=== PATIENT | male | born 1960 | race Caucasian/White ===

== ENCOUNTER 2016-06-29 16:04 | Emergency (ER) | payer BC ==
[2016-06-29 16:49] VITALS: BP 133/80
[2016-06-29] MEDS ORDERED: Ketorolac INJ* 60 MG/2 ML VIAL IM ONE (17:38)
--- NOTE | 2016-06-29 17:50 | RAD ---
Indication: Severe sudden onset RIGHT low back pain without preceding injury. Comparison: April 25, 2006 CT. Technique: AP, lateral, and oblique views lumbar sacral spine. Report: Mild LEFT convex curve of the lumbar spine centered at the L3-L4 level is new compared with the 2007 CT. Normal lordotic curve without spondylolisthesis. Negative for fracture or spondylolysis. No focal osseous lesions evident. Multilevel mild vertebral endplate osteophytosis. Moderate L2-L3 and mild L3-L4 disc space narrowing. Unremarkable paraspinal soft tissue contours. IMPRESSION: Degenerative spondylosis with worsening compared with the [address] CT[address]
--- NOTE | 2016-06-29 18:06 | UC ---
Oskar Pat Billy, scribed for Jessica Almendarez MD on 06/29/16 at 1653 . Back Pain HPI - HPI Summary HPI Summary: Patient is a 55 year-old male coming to [facility] with his with lower back pain today. Patient states that he has had several days of relatively mild pain , but his pain increased significantly this morning when he was bending down to put on his socks and shoes. He states that the pain is worst in the right lumbar region, and does not radiate to the legs. Pain is worse with weightbearing, and improved when arching his back backwards. He also took ibuprofen this morning, with improvement to pain. He denies any numbness, tingling, or loss of bladder or bowel control. Patient states he had one episode of sciatic pain several years ago. - History of Current Complaint Chief Complaint: UCBackPain Stated Complaint: BACK INJURY Time Seen by Provider: 06/29/16 16:47 Hx Obtained From: Patient Onset/Duration: Sudden Onset, Lasting Hours, Still Present Timing: Constant Severity Initially: Moderate Severity Currently: Moderate Pain Intensity: 6 Pain Scale Used: 0-10 Numeric Character: Aching Aggravating: Walking - weightbearing Alleviating: OTC Meds - ibuprofen Associated Signs And Symptoms: Negative: Numbness, Tingling, Bladder Incontinence, Bowel Incontinence - Allergies/Home Medications Allergies/Adverse Reactions: Allergies Allergy/AdvReac Type Severity Reaction Status Date / Time No Known Allergies Allergy Verified 06/29/16 16:49 Home Medications: Home Medications Ibuprofen [Advil Migraine] 600 PRN 06/29/16 [History] PMH/Surg Hx/FS Hx/Imm Hx Previously Healthy: Yes - Surgical History Surgical History: Yes Surgery Procedure, Year, and Place: tonsils - Family History Known Family History: Positive: Cardiac Disease, Hypertension - Social History Alcohol Use: Occasionally Substance Use Type: None Smoking Status (MU): Never Smoked Tobacco Review of Systems Constitutional: Negative Skin: Negative Eyes: Negative ENT: Negative Respiratory: Negative Cardiovascular: Negative Gastrointestinal: Negative Genitourinary: Negative Motor: Negative Neurovascular: Negative Musculoskeletal: Other: - back pain Neurological: Negative Psychological: Negative All Other Systems Reviewed And Are Negative: Yes Physical Exam Triage Information Reviewed: Yes Appearance: Well-Appearing Vital Signs: Initial Vital Signs Temp 98.8 F 06/29/16 16:43 Pulse 69 06/29/16 16:43 Resp 18 06/29/16 16:43 BP 133/80 06/29/16 16:43 Pulse Ox 99 06/29/16 16:43 Vital Signs Reviewed: Yes Eye Exam: Normal Eyes: Positive: Conjunctiva Clear ENT: Positive: Normal ENT inspection Dental Exam: Normal Neck: Positive: Supple, Nontender, No Lymphadenopathy Respiratory: Positive: Lungs clear, Normal breath sounds, No respiratory distress, No accessory muscle use Cardiovascular: Positive: RRR, Pulses Normal Abdomen Description: Positive: Nontender, Soft Musculoskeletal Exam: Other - Spine is nontender. No tenderness in the right lower back. Patient is ambulating cautiously to not bear weight on the right leg. Leaning over the exam table provides relief. No reproducible pain with palpation. Straight leg raise bilaterally causes pain across bilateral lower back without any radiation into the legs. Strength 5/5. Neurological Exam: Normal Psychological Exam: Normal Skin Exam: Normal Diagnostics - Radiology Lumbar Spine X-Ray Radiology Interpretation Completed By: Radiologist - Degenerative spondylosis with worsening compared with the 2007 CT. Back Pain Course/Dx - Course Course Of Treatment: ISTOP ref # [id number] - shows no activity. Xrays L/S spine - Report: Mild LEFT convex curve of the lumbar spine centered at the L3-L4 level is new. compared with the 2007 CT. Normal lordotic curve without spondylolisthesis. Negative for. fracture or spondylolysis. No focal osseous lesions evident. Multilevel mild vertebral. endplate osteophytosis. Moderate L2 -L3 and mild L3-L4 disc space narrowing. Unremarkable. paraspinal soft tissue contours. IMPRESSION: Degenerative spondylosis with worsening compared with the [address] CT[address] toradol 60mgs IM x 1 now for pain relief. sent in rx for cyclobenzaprine and instructed he can start with 1/2 10mgs tab to see if this is enough and if not, he can take a full tablet. No driving or operating machinery. declines codeine. I advised ortho referral if sx increase or persist. They understood me well adn are quite agreeable with plan. 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 - Differential Dx/Diagnosis Differential Diagnosis/HQI/PQRI: Cauda Equina Syndrome, Compressive Cord Syndrome, Fracture, Herniated Disc, Strain, Sprain Provider Diagnoses: Right low back strain Discharge - Discharge Plan Condition: Stable Disposition: HOME Prescriptions: Cyclobenzaprine TAB* [Flexeril 10 MG TAB*] 10 mg PO BID #20 tab celeCOXIB CAP* [CeleBREX CAP*] 200 mg PO DAILY PRN #30 cap PRN Reason: Pain Patient Education Materials: Low Back Strain (ED) Referrals: Dutch Goodman MD [Primary Care Provider] - 3 Days Additional Instructions: Rest. You can trial heat and ice and see which helps you most. I have also given you a prescription for PT. No driving or operating heavy machinery for at least 8 hrs after taking the cyclobenzaprine. The documentation as recorded by the Oskar mccracken Billy accurately reflects the service I personally performed and the decisions made by me, Jessica Almendarez MD.
== END 2016-06-29 18:13 | disposition home or self-care (01) ==
LOC: UCEAST 16:04
DX: S39.012A Strain of muscle, fascia and tendon of lower back, initial encounter (principal); X58.XXXA Exposure to other specified factors, initial encounter; Y93.9 Activity, unspecified; Y92.9 Unspecified place or not applicable
CPT/HCPCS: 72110; 96372; 99212; G0463; J1885

== ENCOUNTER 2019-06-19 08:49 | Emergency (ER) | payer BC ==
[2019-06-19 09:05] VITALS: BP 143/82
--- NOTE | 2019-06-19 09:45 | UC ---
Complaint Male HPI - HPI Summary HPI Summary: 58-year-old male presents with complaints of left flank pain. States pain started in his left lower back about 5 days ago which has started radiating to the left flank, left lower abdomen, and into the left testicle. States over the last couple days is also started having some urinary urgency. No history of kidney stones however states had a similar episode a little over a month ago that lasted a few days and then resolved on its own. Denies fever, chills, nausea, vomiting, dysuria, urinary frequency, hematuria, penile drainage, testicular or scrotal swelling. - History of Current Complaint Chief Complaint: UCGU Stated Complaint: URINARY CONCERN Time Seen by Provider: 06/19/19 09:24 Hx Obtained From: Patient Pain Intensity: 3 - Allergies/Home Medications Allergies/Adverse Reactions: Allergies Allergy/AdvReac Type Severity Reaction Status Date / Time No Known Allergies Allergy Verified 06/19/19 09:01 Home Medications: Home Medications Naproxen [Naproxen 500 mg tab] 500 mg PO Q12HR PRN #30 tablet 06/19/19 [Rx] Pravastatin (NF) [Pravachol (NF)] 20 mg PO DAILY 06/19/19 [History Confirmed ] Tamsulosin CAP* [Flomax CAP*] 0.4 mg PO DAILY #14 cap 06/19/19 [Rx] PMH/Surg Hx/FS Hx/Imm Hx Previously Healthy: Yes Endocrine History: Dyslipidemia - Surgical History Surgical History: Yes Surgery Procedure, Year, and Place: tonsils - Family History Known Family History: Positive: Cardiac Disease, Hypertension - Social History Occupation: Employed Full-time Lives: With Family Alcohol Use: Daily Substance Use Type: None Smoking Status (MU): Never Smoked Tobacco Review of Systems All Other Systems Reviewed And Are Negative: Yes Constitutional: Negative: Fever, Chills Skin: Negative: Rash Respiratory: Positive: Negative Cardiovascular: Positive: Negative Gastrointestinal: Positive: Abdominal Pain. Negative: Vomiting, Nausea Genitourinary: Positive: Frequency, Urgency. Negative: Dysuria, Hematuria, Vaginal/Penile Discharge Neurological/Mental Status: Positive: Negative Psychological: Positive: Negative Is Patient Immunocompromised?: No Physical Exam - Summary Physical Exam Summary: GENERAL APPEARANCE: Well developed, well nourished, alert and cooperative, and appears to be in no acute distress. CARDIAC: Normal S1 and S2. No S3, S4 or murmurs. Rhythm is regular. There is no peripheral edema, cyanosis or pallor. Extremities are warm and well perfused. Capillary refill is less than 2 seconds. Peripheral pulses intact. LUNGS: Clear to auscultation without rales, rhonchi, wheezing or diminished breath sounds. ABDOMEN: Positive bowel sounds. Soft, nondistended, nontender. No guarding or rebound. No masses or hepatosplenomegally. No CVA tenderness. MUSKULOSKELETAL: ROM intact to all extremities. No joint erythema or tenderness. Normal muscular development. Normal gait. SKIN: Skin normal color, texture and turgor with no lesions or eruptions. Triage Information Reviewed: Yes Vital Signs: Initial Vital Signs Temp 98.2 F 06/19/19 08:58 Pulse 67 06/19/19 08:58 Resp 16 06/19/19 08:58 BP 143/82 06/19/19 08:58 Pulse Ox 100 06/19/19 08:58 Vital Signs Reviewed: Yes Complaint Male Course/Dx - Course Course Of Treatment: 58-year-old male presents with complaints of left flank pain. States pain started in his left lower back about 5 days ago which has started radiating to the left flank, left lower abdomen, and into the left testicle. States over the last couple days is also started having some urinary urgency. No history of kidney stones however states had a similar episode a little over a month ago that lasted a few days and then resolved on its own. Denies fever, chills, nausea, vomiting, dysuria, urinary frequency, hematuria, penile drainage, testicular or scrotal swelling. Afebrile. Mildly hypertensive otherwise vital signs stable. Patient's exam was overall unremarkable. [id number] urinalysis showed trace blood but no evidence of infection. Reviewed results with the patient and we discussed that based on his urinalysis and history and physical that his symptoms are likely from a kidney stone although I cannot definitively diagnosis without a CT confirmation. Patient states he feels that his symptoms are mild and would like to forego CT testing at this time however we will treat him for the likely kidney stone with naproxen 500 mg every 12 hours as needed for pain as well as start him on tamsulosin for stone expulsion therapy. He was instructed to strain his urine and to bring any stone to his follow-up appointment. He is to follow-up with his primary care or with urology in a week for reevaluation. Anticipatory guidance and warning symptoms were reviewed with the patient. Verbalizes understanding and agrees with plan of care. - Differential Dx/Diagnosis Differential Diagnosis/HQI/PQRI: Epididymitis, Prostatitis, Testicular Torsion, Ureteral Calculi, Urinary Tract Infection Provider Diagnosis: Left flank pain Discharge ED - Sign-Out/Discharge Documenting (check all that apply): Patient Departure All imaging exams completed and their final reports reviewed: No Studies - Discharge Plan Condition: Stable Disposition: HOME Prescriptions: Naproxen [Naproxen 500 mg tab] 500 mg PO Q12HR PRN #30 tablet PRN Reason: Pain - Moderate Tamsulosin CAP* [Flomax CAP*] 0.4 mg PO DAILY #14 cap Referrals: Dutch Goodman MD [Primary Care Provider] - 7 Days Jayden Collins MD [Medical Doctor] - Additional Instructions: The urine test performed in the clinic today showed no evidence of infection however there was a trace amount of blood. With the presence of blood and based your history and exam is symptoms are suggestive of a kidney stone however I cannot definitively diagnose this as you have elected to not do a CT scan at this time. Be sure to drink plenty of fluids. Strain your urine each time you go to bathroom and bring the kidney stone 2 your follow-up appointment if you are able to catch the stone. Take naproxen 500 mg every 12 hours as needed for pain. Start tamsulosin 0.4 mg 1 tablet daily to aid in the expulsion of the kidney stone. This medication can cause your blood pressure to drop when you change positions so be sure to change positions slowly and make sure you are not dizzy before you start walking. Follow-up with your primary care provider or with urology in 1 week for recheck of symptoms. Seek immediate medical attention in the emergency room if you develop a fever greater than 100.5 F, have severe pain that is not managed with the pain medication, persistent vomiting, or any worsening of symptoms. - Billing Disposition and Condition Condition: STABLE Disposition: Home - Attestation Statements Provider Attestation: Chart has been reviewed. I did not see the patient but was available for consult. YULIA.
== END 2019-06-19 09:57 | disposition home or self-care (01) ==
LOC: UCCORT 08:49
DX: R10.9 Unspecified abdominal pain (principal); E78.5 Hyperlipidemia, unspecified; M54.5 Low back pain; R35.0 Frequency of micturition; R39.15 Urgency of urination; Z79.899 Other long term (current) drug therapy
CPT/HCPCS: 81003; 99212; G0463